=== PATIENT | female | born 1935 | race Caucasian/White ===

== ENCOUNTER 2018-09-27 00:36 | Emergency (ER) | payer OTHER ==
[2018-09-27 01:07] LABS: ARTERIAL BLOOD GAS BASE EXCESS 7.6 meq/l (-2-2); ARTERIAL BLOOD GAS PCO2 41.3 mmHg (35-45); ARTERIAL BLOOD GAS pH 7.49 (7.35-7.45)
[2018-09-27 01:08] LABS: ALLENS TEST POSITIVE
--- NOTE | 2018-09-27 01:13 | PDOC ---
Attending Attestation - Resident Resident Name: Ghassan Encarnacion - ED Attending Attestation I have performed the following: I have examined & evaluated the patient, The case was reviewed & discussed with the resident, I agree w/resident's findings & plan, Exceptions are as noted - HPI HPI: 09/27/18 01:08 Ms Alaniz is an 82 yo F h/o HTN, HLD, head and neck cancer s/p surgical resection With trach and peg Trach was found removed at nursing facility Pt sent to the ER for evaluation 09/27/18 21:41 - Physicial Exam PE: 09/27/18 01:11 On examination: Extensive oral surgery Well formed tracheostomy tract Tachycardiac Rhoncherous breath sounds No abd tenderness Moves all extremities - Medical Decision Making 09/27/18 01:10 Laboratory Tests 09/27/18 01:04 ABG pH 7.49 H ABG pCO2 at Pt Temp 41.3 ABG pO2 at Pt Temp 324.0 H* ABG HCO3 31.3 H ABG O2 Sat (Measured) 100.0 H* ABG O2 Content 11.9 L ABG Base Excess 7.6 H This blood gas was done after pt was being bagged (it was difficult to get the patient's O2 saturation using our pulse oximeters) Pt can be placed on trach collar 09/27/18 01:14 CXR Reassess for discharge 09/27/18 01:31 EKG: Afib rate of 124 bpm, axis nml, intervals nml, no st elevation, lateral st depressions, t waves upright 09/27/18 02:34 CXR - Trach in place [facility]
[2018-09-27 01:31] VITALS: TEMP 98.8; BMI 17.6
--- NOTE | 2018-09-27 03:07 | PDOC ---
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 09/27/18 04:14 Afebrile, tachycardic. PAtient is non-verbal at baseline. 09/27/18 04:15 Past History - Past Medical History Allergies/Adverse Reactions: Allergies Allergy/AdvReac Type Severity Reaction Status Date / Time codeine Allergy Verified 09/27/18 01:41 Penicillins Allergy Verified 09/27/18 01:41 Home Medications: Ambulatory Orders Ascorbic Acid [Vitamin C -] 500 mg PEG DAILY 09/27/18 Aspirin [ASA -] 81 mg PEG DAILY 09/27/18 Cetirizine HCl [Zyrtec -] 10 mg PEG DAILY 09/27/18 Cholecalciferol (Vitamin D3) [Vitamin D3 -] 1,000 unit PEG DAILY 09/27/18 Donepezil HCl [Aricept -] 10 mg PEG DAILY 09/27/18 Losartan Potassium [Cozaar -] 100 mg PEG DAILY 09/27/18 Memantine HCl [Namenda -] 10 mg PEG BID 09/27/18 Memantine HCl/Donepezil HCl [Namzaric 28 mg-10 mg Capsule] 1 each PEG DAILY Metoprolol Tartrate [Lopressor -] 100 mg PEG Q8H 09/27/18 Multivit-Minerals/Ferrous Fum [Multivitamin Liquid] 5 ml PEG DAILY 09/27/18 Ondansetron Oral Solution [Zofran Oral Solution -] 4 mg PEG Q8H 09/27/18 Polyethylene Glycol [Polyox Wsr-301] 17 gm PEG DAILY 09/27/18 Pyridoxine HCl [Vitamin B-6] 100 mg PEG DAILY 09/27/18 Rivaroxaban [Xarelto -] 15 mg PEG DAILY 09/27/18 Sennosides [Senna] 2 tab PEG DAILY 09/27/18 Vitamin B Complex 1 each PEG DAILY 09/27/18 Zinc Sulfate [Orazinc] 220 mg PEG DAILY 09/27/18 Cancer: Yes (ORAL, COLON) Cardiac Disorders: Yes (HLD, HTN,) COPD: Yes - Immunization History Immunization Up to Date: Yes - Suicide/Smoking/Psychosocial Hx Smoking History: Never smoked Have you smoked in the past 12 months: No Information on smoking cessation initiated: No Hx Alcohol Use: No Drug/Substance Use Hx: No Review of Systems - Review of Systems Able to Perform ROS?: No (Trach, ventilator dependa) *Physical Exam - Vital Signs Last Vital Signs Temp Pulse Resp BP Pulse Ox 98.8 F 120 H 22 H 116/96 100 09/27/18 00:40 09/27/18 00:40 09/27/18 00:40 09/27/18 00:40 09/27/18 01:57 - Physical Exam General Appearance: Yes: Moderate Distress HEENT: positive: Other (extensive facial reconstruction post tumor resection) Respiratory/Chest: positive: Respiratory Distress, Rales. negative: Chest Tender Cardiovascular: positive: Regular Rate, S1, S2, Tachycardia Gastrointestinal/Abdominal: positive: Normal Bowel Sounds, Flat, Soft, Other ( PEG tube presents). negative: Tender Musculoskeletal: positive: Normal Inspection. negative: CVA Tenderness Integumentary: positive: Normal Color, Dry, Warm ED Treatment Course - ADDITIONAL ORDERS Additional order review: Laboratory Results 09/27/18 01:04 Puncture Site Right radial ABG pH 7.49 H ABG pCO2 at Pt Temp 41.3 ABG pO2 at Pt Temp 324.0 H* ABG HCO3 31.3 H ABG O2 Sat (Measured) 100.0 H* ABG O2 Content 11.9 L ABG Base Excess 7.6 H Collin Test Positive O2 Delivery Device Ambu bag Oxygen Flow Rate 100% PEEP 0.0 Medical Decision Making - Medical Decision Making 09/27/18 04:00 New cuffed trach 6.0 placed. Chest Xray: Tracheostomy tube in satisfactory position. Patchy opacities right greater than left lungs, possibly chronic interstitial changes accentuated by rotation, but correlate clinically for atypical infection. No pleural effusions. Cardiomegaly and/or pericardial effusion. Surgical clips bilateral neck soft tissues and left elbow soft tissues. Chronic fracture proximal right humerus. Patient ok to go back to [facility] *DC/Admit/Observation/Transfer Diagnosis at time of Disposition: Tracheostomy, acute management - Discharge Dispostion Disposition: HOME Condition at time of disposition: Guarded Decision to Admit order: No - Referrals Referrals: Boston Gamez [Primary Care Provider] - - Patient Instructions Printed Discharge Instructions: How to Take Care of a Tracheostomy Additional Instructions: COme back to the ER for any new worsening or concerning symptom. - Post Discharge Activity
[2018-09-27 04:37] VITALS: BP 101/61; PULSE 115
[2018-09-27] MEDS ORDERED: METOPROLOL TARTRATE 50 MG TABLET (FP) PO SCH ×2 (04:39→10:00)
[2018-09-27] MEDS ORDERED: METOPROLOL TARTRATE 50 MG TABLET (FP) ONE (04:42)
[2018-09-27] MEDS ORDERED: METOPROLOL TARTRATE 50 MG TABLET (FP) PO ONE (04:45)
--- NOTE | 2018-09-27 16:25 | EKG ---
Test Reason : Blood Pressure : / mmHG Vent. Rate : 124 BPM Atrial Rate : 127 BPM P-R Int : 000 ms QRS Dur : 090 ms QT Int : 324 ms P-R-T Axes : 000 -19 047 degrees QTc Int : 465 ms ATRIAL FIBRILLATION WITH RAPID VENTRICULAR RESPONSE MODERATE VOLTAGE CRITERIA FOR LVH, MAY BE NORMAL VARIANT ABNORMAL ECG NO PREVIOUS ECGS AVAILABLE Confirmed by MD Duarte, Festus ([id number]) on 09/27/2018 4:25:22 PM Referred By: Confirmed By:Festus Ramachandran MD
== END 2018-09-27 05:00 | disposition home or self-care (01) ==
LOC: JER 00:36
PROC: 0B21XFZ Change Tracheostomy Device in Trachea, External Approach (ICD-10-PCS; principal; 2018-09-27)
DX: J95.09 Other tracheostomy complication (principal); Z85.818 Personal history of malignant neoplasm of other sites of lip, oral cavity, and pharynx; I10 Essential (primary) hypertension; E78.5 Hyperlipidemia, unspecified; Z85.038 Personal history of other malignant neoplasm of large intestine; Z93.1 Gastrostomy status; I48.91 Unspecified atrial fibrillation; Z79.01 Long term (current) use of anticoagulants
CPT/HCPCS: 31502; 36600; 71045-TC-FY; 82803; 93005; 93010; 99284-25

== ENCOUNTER 2018-09-27 09:12 | Emergency (ER) | payer OTHER ==
--- NOTE | 2018-09-27 09:32 | PDOC ---
History of Present Illness - General Stated Complaint: GT TUBE REPLACEMENT Time Seen by Provider: 09/27/18 09:26 History Source: Alf Records Past History - Past Medical History Allergies/Adverse Reactions: Allergies Allergy/AdvReac Type Severity Reaction Status Date / Time codeine Allergy Verified 09/27/18 09:37 Penicillins Allergy Verified 09/27/18 09:37 Home Medications: Ambulatory Orders Acetaminophen 975 mg GT Q6H 09/27/18 Acetylcysteine 1 ml IH Q6H 09/27/18 Alprazolam 0.5 mg GT BID 09/27/18 Ascorbic Acid [Vitamin C -] 500 mg PEG DAILY 09/27/18 Aspirin [ASA -] 81 mg PEG DAILY 09/27/18 Bacitracin - [Bacitracin Topical Ointment -] 1 applic TP DAILY 09/27/18 Cetirizine HCl [Zyrtec -] 10 mg PEG DAILY 09/27/18 Cholecalciferol (Vitamin D3) [Vitamin D3 -] 1,000 unit PEG DAILY 09/27/18 Donepezil HCl [Aricept -] 10 mg PEG HS 09/27/18 Ipratropium/Albuterol Sulfate [Iprat-Albut 0.5-3(2.5) mg/3 ml] 3 ml IH Q6H 09/27 Lactose-Reduced Food/Fiber [Jevity 1.5 Caleb Liquid] 1,200 ml GT ASDIR 09/27/18 Losartan Potassium [Cozaar -] 100 mg PEG DAILY 09/27/18 Memantine HCl [Namenda -] 10 mg PEG BID 09/27/18 Memantine HCl/Donepezil HCl [Namzaric 28 mg-10 mg Capsule] 1 each PEG DAILY Metoprolol Tartrate [Lopressor -] 100 mg PEG Q8H 09/27/18 Multivit-Minerals/Ferrous Fum [Multivitamin Liquid] 5 ml PEG DAILY 09/27/18 Ondansetron Oral Solution [Zofran Oral Solution -] 4 mg PEG Q8H 09/27/18 Polyethylene Glycol [Polyox Wsr-301] 17 gm PEG DAILY 09/27/18 Pyridoxine HCl [Vitamin B-6] 100 mg PEG DAILY 09/27/18 Rivaroxaban [Xarelto -] 15 mg GT DAILY 09/27/18 Rivaroxaban [Xarelto -] 15 mg PEG DAILY 09/27/18 Sennosides [Senna] 2 tab PEG DAILY 09/27/18 Sulfamethoxazole/Trimethoprim [Sulfamethoxazole-Tmp Susp] 20 ml GT BID 09/27/18 Vitamin B Complex 1 each PEG DAILY 09/27/18 Zinc Sulfate [Orazinc] 220 mg PEG DAILY 09/27/18 Cancer: Yes (ORAL, COLON) Cardiac Disorders: Yes (HLD, HTN,) COPD: Yes - Immunization History Immunization Up to Date: Yes - Suicide/Smoking/Psychosocial Hx Smoking History: Never smoked Have you smoked in the past 12 months: No Hx Alcohol Use: No Drug/Substance Use Hx: No Review of Systems - Review of Systems Able to Perform ROS?: No (2/2 pt's condition) ED Treatment Course - LABORATORY CBC & Chemistry Diagram: 09/27/18 10:52 09/27/18 10:52 Medical Decision Making - Medical Decision Making 09/27/18 09:27 82-year-old female, 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 per NH, unable to flush/use tube this am. Pt unable to communicate 2/2 current condition See exam Malfunctioning PEG PEG appears intact on exam w/ no obvious s/o infection -will attempt flush/confirm placement -dispo pending 09/27/18 10:39 Per nurse, unable to flush PEG. Spoke to staff at snf, states patient is new to their facility and arrived with peg already in place. Staff does not know how long ago peg was placed. Spoke to pt's emergency contact, her , who states patient had oral surgery 09/01 at [facility]. Per snf records now, it appears that patient also had the feeding tube placed around the same time by IR. Will now contact IR at [facility] for PEGreplacement. In the meantime, will IV hydrate and check basic labs. Of note , pt NOT DNR/DNI per 09/27/18 11:[address] Vance of IR and patient now pending replacement of PEG tube by service 09/27/18 15:00 Pt s/p gtube replacement by IR and is ready for use per notes. Labs only remarkable for hemoglobin of 8.2. Per patient's prior hospital record from , patient was transfused for hemoglobin of 7.1 with 7.5, on repeat. There is no mention of patient's known baseline. As per discussion with Dr. Belcher, no indication for transfusion at this time. Patient stable to return to OR at this time 09/27/18 16:19 EMS at bedside to transport pt back to facility *DC/Admit/Observation/Transfer Diagnosis at time of Disposition: Feeding by G-tube - Discharge Dispostion Disposition: HOME Condition at time of disposition: Stable - Referrals Referrals: Boston Gamez [Primary Care Provider] - - Patient Instructions Additional Instructions: Pt had new 16 arabic G-tube replaced by IR and is ready for use Pt was given 500cc normal saline here Labs reveals hemoglobin of 8.2 but per prior hospital records, does not appears to be far from pt's baseline. No indication or transfusion at this time Return to ER as needed - Post Discharge Activity
[2018-09-27 09:36] VITALS: TEMP 98.6; BMI 23.1
[2018-09-27] MEDS ORDERED: SODIUM CHLORIDE 500 ML IV STA (10:39)
[2018-09-27 11:01] LABS: BASO % 0.4 % (0-2.0); EOS % 1.7 % (0-4.5); HEMATOCRIT 25.8 % (32.4-45.2); HEMOGLOBIN 8.2 GM/dL (10.7-15.3); LYMPH % 9.5 % (8-40); MCH 28.1 pg (25.7-33.7); MCHC 31.8 g/dl (32.0-36.0); MEAN CELL VOLUME 88.2 fl (80-96); MEAN PLT VOLUME 7.2 fl (7.5-11.1); MONO % 9.1 % (3.8-10.2); NEUT % 79.3 % (42.8-82.8); PLATELET COUNT 396 K/MM3 (134-434); RBC 2.92 M/mm3 (3.60-5.2); RDW 17.3 % (11.6-15.6); WHITE BLOOD COUNT 8.1 K/mm3 (4.0-10.0)
[2018-09-27 11:43] LABS: ALBUMIN 2.1 g/dl (3.4-5.0); ALK PHOS 121 U/L (45-117); ANION GAP 9 MMOL/L (8-16); BILIRUBIN,TOTAL 0.4 mg/dL (0.2-1); BLOOD UREA NITROGEN 30 mg/dL (7-18); CHLORIDE 96 mmol/L (98-107); CO2 32 mmol/L (21-32); CREATININE 0.6 mg/dL (0.55-1.3); GLUCOSE,RANDOM 92 mg/dL (74-106); POTASSIUM 4.1 mmol/L (3.5-5.1); SGOT/AST 27 U/L (15-37); SGPT/ALT 22 U/L (13-61); SODIUM 137 mmol/L (136-145); TOT PROT 7.1 g/dl (6.4-8.2)
[2018-09-27 12:15] LABS: ANISOCYTOSIS 1+; MACROCYTOSIS 1+; PLATELET ESTIMATE NORMAL
--- NOTE | 2018-09-27 12:25 | PDOC ---
*Physical Exam - Vital Signs Last Vital Signs Temp Pulse Resp BP Pulse Ox 98.6 F 69 26 H 125/69 100 09/27/18 09:33 09/27/18 11:30 09/27/18 11:30 09/27/18 11:30 09/27/18 11:30 ED Treatment Course - LABORATORY CBC & Chemistry Diagram: 09/27/18 10:52 09/27/18 10:52 - ADDITIONAL ORDERS Additional order review: Laboratory Results 09/27/18 10:52 Sodium 137 Potassium 4.1 Chloride 96 L Carbon Dioxide 32 Anion Gap 9 BUN 30 H Creatinine 0.6 Creat Clearance w eGFR > 60 Random Glucose 92 Calcium 9.0 Total Bilirubin 0.4 AST 27 ALT 22 Alkaline Phosphatase 121 H Total Protein 7.1 Albumin 2.1 L 09/27/18 10:52 RBC 2.92 L MCV 88.2 MCHC 31.8 L RDW 17.3 H MPV 7.2 L Neutrophils % 79.3 Lymphocytes % 9.5 Monocytes % 9.1 Eosinophils % 1.7 Basophils % 0.4 - Medications Given in the ED: ED Medications Discontinued Medications Generic Name Dose Route Start Last Admin Trade Name Freq PRN Reason Stop Dose Admin Sodium Chloride 500 mls @ 500 mls/hr 09/27/18 10:39 09/27/18 11:30 Normal Saline - IV 09/27/18 11:38 500 mls/hr ASDIR STA Administration Medical Decision Making - Medical Decision Making 09/27/18 12:23 Patient seen and evaluated with the nurse practitioner. I agree with the overall evaluation, assessment, and management with the following summary of visit: 82-year-old female with clogged PEG tube, sent from care home. Upon review of records, had INR placed PEG tube in August 2018, unable to flush. Discussed with IR, will exchange and disposition accordingly chem wnl, Hgb 8 here consistent with recent D/C summary from [facility] *DC/Admit/Observation/Transfer Diagnosis at time of Disposition: Feeding by G-tube - Referrals Referrals: Boston Gamez [Primary Care Provider] - - Patient Instructions - Post Discharge Activity
[2018-09-27] MEDS ORDERED: METOPROLOL TARTRATE 50 MG TABLET (FP) PO ONE (13:49)
[2018-09-27] MEDS ORDERED: ALPRAZolam 0.25 MG TABLET PO ONE (13:49)
[2018-09-27] MEDS ORDERED: ALPRAZolam 0.25 MG TABLET ONE (13:52)
[2018-09-27] MEDS ORDERED: METOPROLOL TARTRATE 50 MG TABLET (FP) ONE (13:52)
[2018-09-27 15:54] VITALS: BP 100/59; PULSE 104
== END 2018-09-27 16:03 ==
LOC: JER 09:12
PROC: 0D20XUZ Change Feeding Device in Upper Intestinal Tract, External Approach (ICD-10-PCS; principal; 2018-09-27)
DX: K94.23 Gastrostomy malfunction (principal); I10 Essential (primary) hypertension; E78.5 Hyperlipidemia, unspecified; I48.91 Unspecified atrial fibrillation; Z79.01 Long term (current) use of anticoagulants; Z85.818 Personal history of malignant neoplasm of other sites of lip, oral cavity, and pharynx; Z85.038 Personal history of other malignant neoplasm of large intestine; Z93.0 Tracheostomy status
CPT/HCPCS: 36415; 49450; 76000-TC-FY; 80053; 85025; 99285-25; C1769